=== PATIENT | male | born 1965 | race African-American/Black ===

== ENCOUNTER 2024-10-18 00:40 | Emergency (ER) | payer OTHER ==
[~2024-10-18] VITALS: Ht 177.8 cm; Wt 100.0 kg
[~2024-10-18 00:40] MED LIST: ASPI-986 PO; ATEN-42 PO
[2024-10-18 00:50] VITALS: O2SAT 97
[2024-10-18] MEDS ORDERED: KETOROLAC 30MG/ML VIAL IM ONE (01:00)
[2024-10-18 04:41] VITALS: BP 160/98; PULSE 83; RESP 16; TEMP 36.7; O2SAT 100
[2024-10-18 04:45] VITALS: TEMP 98
[2024-10-18] MEDS: ACETAMINOPHEN 325MG TABLET PO ONE (04:45)
== END 2024-10-18 04:45 | disposition home or self-care (01) ==
LOC: ER 00:40
DX: R51.9 Headache, unspecified (principal); R20.2 Paresthesia of skin; I10 Essential (primary) hypertension; Z79.82 Long term (current) use of aspirin
CPT/HCPCS: 93005; 99284